=== PATIENT | female | born 1950 | race Caucasian/White ===

== ENCOUNTER → 2018-08-31 | Outpatient (CLI) | payer MEDICARE, OTHER ==
[~2018-08-31] MED LIST: AC325T PO; AMOX875T2 PO; BIOTIN PO; EST.625T; FISH1CAP15 PO; GLUC100016 PO; HYDR-508 PO; [UNRECOGNIZED DRUG - CODE] PO
== END ==
LOC: CARD 11:38
PROVIDERS: ATTEND Internal Medicine
DX: R00.2 Palpitations (principal)
CPT/HCPCS: 93005

== ENCOUNTER → 2018-11-18 | Outpatient (CLI) | payer MEDICARE, OTHER | LOC: CARD 10:03 | PROVIDERS: ATTEND Internal Medicine Interventional Cardiology | DX: I10 Essential (primary) hypertension (principal); I49.1 Atrial premature depolarization; I49.3 Ventricular premature depolarization; R00.0 Tachycardia, unspecified; I08.0 Rheumatic disorders of both mitral and aortic valves | CPT/HCPCS: 93306 ==

== ENCOUNTER 2020-01-06 19:00 | Emergency (ER) | payer MEDICARE, OTHER ==
[~2020-01-06] VITALS: Ht 167.7 cm; Wt 99.7 kg
--- NOTE | 2020-01-06 19:40 | ED Upper Extremity ---
General Chief Complaint: Trauma-Non Activation Stated Complaint: FELL/IN RIGHT WRIST Nursing Triage Note: fall Nursing Sepsis Screen: No Definite Risk Source: patient Exam Limitations: no limitations History of Present Illness Date Seen by Provider: Jan 06, 2020 Time Seen by Provider: 19:39 Initial Comments Fell just prior to arrival, right wrist pain. No other injury. Location Injury Occurred: pet store Onset: just prior to arrival Severity: moderate Pain/Injury Location: right wrist Method of Injury: fell Modifying Factors: Worse With Movement Allergies and Home Medications Allergies Coded Allergies: No Known Allergies (Verified Allergy, Unknown, 06/21/07) Home Medications Amoxicillin Trihydrate 875 Mg Tablet, 875 MG PO BID, (Reported) Fish Oil/Dha/Epa 1 Each Capsule, 1,200 MG PO DAILY, (Reported) Glucosamine Sulfate 2KCL 1,000 Mg Tablet, 1,000 MG PO DAILY, (Reported) Hydrocodone/Acetaminophen 1 Each Tablet, 1-2 EACH PO Q4H Prescribed by: JORGE NELSON on 05/24/15 1559 Hydrocodone/Acetaminophen 1 Each Tablet, 1 TAB PO Q4-6HR Prescribed by: THOMAS CARLOS on 01/06/20 2040 Multivit-Min/FA/Ca Carb/Vit K 1 Each Tablet, 1 EACH PO DAILY, (Reported) [Biotin] , 5,000 MCG PO DAILY, (Reported) Patient Home Medication List Home Medication List Reviewed: Yes Review of Systems Constitutional: see HPI EENTM: see HPI Respiratory: no symptoms reported Cardiovascular: no symptoms reported Genitourinary: no symptoms reported Musculoskeletal: see HPI Skin: no symptoms reported Psychiatric/Neurological: No Symptoms Reported Past Wbnvhdb-Rwiklj-Xbymqi Hx Patient Social History Alcohol Use: Denies Use Recreational Drug Use: No 2nd Hand Smoke Exposure: No Recent Foreign Travel: No Contact w/Someone Who Travel: No Recent Infectious Disease Expo: No Recent Hopitalizations: Yes Immunizations Up To Date Tetanus Booster (TDap): More than 5yrs Date of Influenza Vaccine: Aug 09, 2014 Seasonal Allergies Seasonal Allergies: No Past Medical History Surgeries: Yes (OVARY REMOVED,VEINS STRIPPED R LEG X2,) Hysterectomy, Tubal Ligation Respiratory: No Cardiac: Yes Chronic Edema/Swelling Neurological: No Reproductive Disorders: No Kidney Stones Gastrointestinal: No Musculoskeletal: No (BROKEN RIGHT ANKLE, TORN RIGHT MEDIAL MENISCUS) Arthritis Endocrine: No Cancer: No Psychosocial: No Integumentary: No Blood Disorders: No Family Medical History Alzheimer's disease 19 MOTHER Arthritis 19 FATHER 19 MOTHER Cardiovascular disease 19 FATHER Cataracts 19 MOTHER Hypertension 19 MOTHER Myocardial infarction 19 FATHER Thyroid disease 19 MOTHER No Family History of: AIDS Abdominal aortic aneurysm [place]'s disease Alcoholism Asthma Cancer of mouth Colon cancer Completed stroke Dementia Diabetes mellitus Kidney disease Parkinson's disease Prostate cancer Psychosocial problem Respiratory disorder Seizure disorder Severe allergy Tuberculosis Visual disorder Physical Exam Vital Signs Vital Signs - First Documented 01/06/20 19:14 Temp 36.8 Pulse 77 Resp 18 B/P (MAP) 165/93 (117) Capillary Refill : Less Than 3 Seconds Height, Weight, BMI Height: 5'6.00" Weight: 204lbs. oz. 92.736026ac; 35.00 BMI Method: General Appearance: WD/WN, no apparent distress HEENT: normal ENT inspection Respiratory: no respiratory distress, no accessory muscle use Shoulder: normal inspection, non-tender Elbow/Forearm: normal inspection, non-tender Wrist: Yes deformity, Yes ecchymosis, Yes limited ROM, Yes pain, Yes soft tissue tenderness, Yes swelling Hand: normal inspection, non-tender, Right Neurologic/Tendon: normal sensation, normal motor functions Neurologic/Psychiatric: alert, normal mood/affect, oriented x 3 Skin: normal color, warm/dry Normal sensation of the fingertips Progress/Results/Core Measures Results/Orders My Orders Orders - THOMAS CARLOS APRN Wrist, Right, 3 Views Or More (01/06/20 19:31) Rx-Hydrocodone/Apap 5-325 Mg (Rx-Vicodin (01/06/20 20:45) Vital Signs/I&O 01/06/20 19:14 Temp 36.8 Pulse 77 Resp 18 B/P (MAP) 165/93 (117) Blood Pressure Mean: 117 Diagnostic Imaging Diagonstic Imaging: Xray Plain Films/CT/US/NM/MRI: chest Comments NAME: CABRERA JEWELL REC#: [id number] PT STATUS: REG ER : 1950 PHYSICIAN: THOMAS CARLOS APRN ADMIT DATE: 01/06/20/ER Draft Date of Exam:01/06/20 WRIST, RIGHT, 3 VIEWS OR MORE INDICATION: Fall, wrist pain. COMPARISON: None available. TECHNIQUE: Three views of the right wrist were obtained. FINDINGS: There is an acute, mildly comminuted fracture of the distal radius which has intra-articular extension into the radiocarpal joint. There is mild articular surface incongruency of the distal radius due to posterior displacement of dorsal rim of the radius. However, there is no significant dorsal angulation of the radial articular surface at this time. Additionally, there is a fracture through the base of the ulnar styloid which is mildly displaced. Degenerative changes at the thumb base are present. IMPRESSION: 1. Acute comminuted fracture of the distal radius has intra-articular extension into the radiocarpal joint. 2. Associated ulnar styloid fracture. Dictated on workstation # [id number] Dict: 01/06/201958 Trans: 01/06/202001 PJE [id number] Interpreted by: SY BAKER MD Electronically signed by: Departure Communication (Admissions) She states that she follows with Dr. Montoya for all of her orthopedic needs. She was placed in a sugar tong style splint. Impression Primary Impression: Wrist fracture Qualified Codes: S62.101A - Fracture of unspecified carpal bone, right wrist, initial encounter for closed fracture Disposition: HOME, SELF-CARE Condition: Stable Departure-Patient Inst. Decision time for Depature: 20:39 Referrals: ANIYA BERRY DO (PCP/Family) Primary Care Physician Patient Instructions: Wrist Fracture (DC) Add. Discharge Instructions: 1. Leave the splint on at all times until you follow up with orthopedics 2. Call orthopedic surgeon of your choosing next week for recheck. Pain medication as directed in the meantime. All discharge instructions reviewed with patient and/or family. Voiced understanding. Scripts Hydrocodone/Acetaminophen (Latta 5-325 Tablet) 1 Each Tablet 1 TAB PO Q4-6HR for Pain MDD 10 TABS for 7 Days, #20 TAB Prov: THOMAS CARLOS APRN 01/06/20 THOMAS CARLOS APRN Jan 06, 2020 19:40
--- NOTE | 2020-01-06 20:02 | Diagnostic Imaging Report ---
INDICATION: Fall, wrist pain. COMPARISON: None available. TECHNIQUE: Three views of the right wrist were obtained. FINDINGS: There is an acute, mildly comminuted fracture of the distal radius which has intra-articular extension into the radiocarpal joint. There is mild articular surface incongruency of the distal radius due to posterior displacement of dorsal rim of the radius. However, there is no significant dorsal angulation of the radial articular surface at this time. Additionally, there is a fracture through the base of the ulnar styloid which is mildly displaced. Degenerative changes at the thumb base are present. IMPRESSION: 1. Acute comminuted fracture of the distal radius has intra-articular extension into the radiocarpal joint. 2. Associated ulnar styloid fracture. Dictated by: Dictated on workstation # [id number]
[2020-01-06] MEDS ORDERED: HYDR-4226 PO (20:40)
[2020-01-06] MEDS ORDERED: RX-HYDROCODONE/APAP 5/325 MG #4 TAB PK PO PRN (20:45)
[2020-01-06 21:15] VITALS: BP 165/93
== END 2020-01-06 21:15 | disposition home or self-care (01) ==
LOC: EDUNIT# 19:00 → ER 19:01
DX: S62.101A Fracture of unspecified carpal bone, right wrist, initial encounter for closed fracture (principal); Z82.49 Family history of ischemic heart disease and other diseases of the circulatory system; W19.XXXA Unspecified fall, initial encounter
CPT/HCPCS: 29105; 73110

== ENCOUNTER → 2021-04-10 | Outpatient (CLI) | payer MEDICARE, OTHER ==
[~2021-04-10] MED LIST changes: +HYDR-4226 PO
== END ==
LOC: CARD 14:00
PROVIDERS: ATTEND Internal Medicine Cardiovascular Disease
DX: I49.3 Ventricular premature depolarization (principal); I51.7 Cardiomegaly; I35.1 Nonrheumatic aortic (valve) insufficiency
CPT/HCPCS: 93306

== ENCOUNTER → 2021-04-16 | Outpatient (CLI) | payer MEDICARE, OTHER ==
[~2021-04-16] VITALS: Ht 170 cm; Wt 91.0 kg
[~2021-04-16] MED LIST changes: +CATHETER FLUSH 10 ML SYR IV PRN; +REGADENOSON 0.4 MG/5 ML SYR (LEXISCAN) IV ONE
--- NOTE | 2021-04-16 13:29 | STRESS TEST ---
DATE OF SERVICE: 04/16/2021 RESTING AND POST REGADENOSON TECHNETIUM-99M TETROFOSMIN SPECT CT IMAGING ORDERING PHYSICIAN: Dr. Acuña. PRIMARY PHYSICIAN: Dr. Schwarz. CLINICAL DIAGNOSIS: Premature ventricular contractions. Baseline images were carried out after injection of 10.31 mCi of technetium-99m Tetrofosmin. This was followed by 0.4 mg Regadenoson and 30.5 mCi of technetium-99m Tetrofosmin for stress imaging. The electrocardiogram showed sinus rhythm at baseline. There was nonspecific ST abnormality. The electrocardiogram did not change significantly with the Regadenoson infusion. The patient tolerated the procedure well. Review of images at rest and following stress does not indicate any distinct perfusion defects consistent with significant myocardial ischemia or infarction. Gated images show normal global left ventricular systolic function with normal regional wall motion. Left ventricular ejection fraction is calculated to be 64%. Left ventricular end diastolic volume is 74 mL. TID is absent (1.04). CONCLUSIONS: 1. No evidence of any significant myocardial ischemia or infarction. 2. Normal regional wall motion. 3. Normal global left ventricular systolic function with a calculated ejection fraction of 64%. Job ID: [id number] DocumentID: [id number] Dictated Date: 04/16/2021 13:21:27 [employer] Date: 04/16/2021 13:28:40 Dictated By: LOLIS ACUÑA MD, MA, FACP, FACC,
== END ==
LOC: CARD 08:30
PROVIDERS: ATTEND Internal Medicine Cardiovascular Disease
DX: I49.3 Ventricular premature depolarization (principal)
CPT/HCPCS: 78452; 93017; A9502

== ENCOUNTER 2021-07-15 10:07 | Emergency (ER) | payer MEDICARE, OTHER ==
[~2021-07-15] VITALS: Ht 167.7 cm; Wt 90.7 kg
[~2021-07-15 10:07] MED LIST changes: -CATHETER FLUSH 10 ML SYR IV PRN; -REGADENOSON 0.4 MG/5 ML SYR (LEXISCAN) IV ONE
--- NOTE | 2021-07-15 10:37 | ED Upper Extremity ---
General Chief Complaint: Trauma-Non Activation Stated Complaint: FALL - HEAD LAC - R ARM LAC / INJ Nursing Triage Note: PT AMB TO [facility] 6 WITH COMPLAINT OF FALL. STATES SHE TRIPPED WALKING INTO [employer] HITTING HEAD ON BRICK WALL AND LANDING ON RIGHT ARM. DENIES LOC. HAS ABRAISION TO RIGHT ELBOW AND RIGHT SCALP. UNKNOWN LAST TETANUS. Source: patient Exam Limitations: no limitations History of Present Illness Date Seen by Provider: Jul 15, 2021 Time Seen by Provider: 10:30 Initial Comments Patient is a 70-year-old female who presents to the emergency room with a chief complaint of right upper arm pain after tripping and falling this morning just prior to arrival. Patient states that she fell hitting her head on a brick wall and landed on her right upper arm. She did not have a loss of consciousness. Denies any visual complaints or nausea. Is not on blood thinners. Patient denies any pain in her neck back. Patient has a little right knee discomfort and states she has had right prior knee replacement. Has had previous broken right collarbone. All other review of systems reviewed and negative except as stated. Onset: just prior to arrival Pain/Injury Location: right arm Method of Injury: fell Modifying Factors: Improves With Immobilization; Worse With Movement Allergies and Home Medications Allergies Coded Allergies: NKANo Known Allergies (Verified Allergy, Unknown, 06/21/07) Patient Home Medication List Home Medication List Reviewed: Yes Amoxicillin Trihydrate (Amoxicillin) 875 Mg Tablet, 875 MG PO BID, (Reported) Entered as Reported by: MARNIE ANGELES on 05/22/15 1258 Fish Oil/Dha/Epa (Fish Oil 1,200 Mg Fish Oil) 1 Each Capsule, 1,200 MG PO DAILY, (Reported) Entered as Reported by: KATALINA MOHR on 05/17/15 1520 Glucosamine Sulfate 2KCL (Glucosamine) 1,000 Mg Tablet, 1,000 MG PO DAILY, (Reported) Entered as Reported by: KATALINA MOHR on 05/17/15 1520 Hydrocodone/Acetaminophen (Anna 7.5-325 Tablet) 1 Each Tablet, 1-2 EACH PO Q4H Prescribed by: JORGE NELSON on 05/24/15 1559 Hydrocodone/Acetaminophen (Hydrocodone/Acetaminophen 5 MG/325 MG TAB) 1 Each Tablet, 1 TAB PO Q4-6HR Prescribed by: THOMAS CARLOS on 01/06/202039 Hydrocodone/Acetaminophen (Hydrocodone-Acetamin 5-325 mg) 1 Each Tablet, 1 TAB PO Q4H PRN for PAIN-MODERATE (5-7) Prescribed by: KENNY LO on 07/15/21 1123 Multivit-Min/FA/Ca Carb/Vit K (Women's 50+ Daily Tablet) 1 Each Tablet, 1 EACH PO DAILY, (Reported) Entered as Reported by: KATALINA MOHR on 05/17/15 1520 [Biotin] , 5,000 MCG PO DAILY, (Reported) Entered as Reported by: KATALINA MOHR on 05/17/15 1520 Review of Systems Constitutional: see HPI Respiratory: no symptoms reported Cardiovascular: no symptoms reported Genitourinary: no symptoms reported Musculoskeletal: joint pain (right shoulder) Skin: other (scrape to right arm) Psychiatric/Neurological: Headache (mild) Past Yquqlub-Obycsy-Xuvdxi Hx Patient Social History Tobacco Use?: No Use of E-Cig and/or Vaping dev: No Substance use?: No Pt feels they are or have been: No Immunizations Up To Date Tetanus Booster (TDap): More than 5yrs First/Initial COVID19 Vaccinat: JANUARY 2021 Second COVID19 Vaccination Arnel: FEBRUARY 2021 COVID19 Vaccine Health Information Systems Technician: MARILEE Seasonal Allergies Seasonal Allergies: No Past Medical History Surgeries: Yes (OVARY REMOVED,VEINS STRIPPED R LEG X2,) Hysterectomy, Tubal Ligation Respiratory: No Cardiac: Yes Chronic Edema/Swelling Neurological: No Reproductive Disorders: No Kidney Stones Gastrointestinal: No Musculoskeletal: No (BROKEN RIGHT ANKLE, TORN RIGHT MEDIAL MENISCUS) Arthritis Endocrine: No Cancer: No Psychosocial: No Integumentary: No Blood Disorders: No Family Medical History Alzheimer's disease 19 MOTHER Arthritis 19 FATHER 19 MOTHER Cardiovascular disease 19 FATHER Cataracts 19 MOTHER Hypertension 19 MOTHER Myocardial infarction 19 FATHER Thyroid disease 19 MOTHER No Family History of: AIDS Abdominal aortic aneurysm [place]'s disease Alcoholism Asthma Cancer of mouth Colon cancer Completed stroke Dementia Diabetes mellitus Kidney disease Parkinson's disease Prostate cancer Psychosocial problem Respiratory disorder Seizure disorder Severe allergy Tuberculosis Visual disorder Physical Exam Vital Signs Vital Signs - First Documented Capillary Refill : Less Than 3 Seconds Height, Weight, BMI Height: 5'6.00" Weight: 204lbs. oz. 92.706069qg; 32.00 BMI Method: General Appearance: WD/WN, no apparent distress HEENT: PERRL/EOMI, TMs normal Neck: non-tender, full range of motion, supple Cardiovascular: regular rate, rhythm Respiratory: lungs clear, normal breath sounds, no respiratory distress, no accessory muscle use Gastrointestinal: soft Shoulder: bone tenderness (proximal shoulder), limited ROM, soft tissue tenderness, swelling Elbow/Forearm: normal inspection, abrasions Wrist: Yes normal inspection, Yes non-tender, Yes no evidence of injury, Yes normal ROM Hand: normal inspection, non-tender, no evidence of injury, normal ROM Neurologic/Tendon: normal sensation, normal motor functions, normal tendon functions Neurologic/Psychiatric: alert, normal mood/affect, oriented x 3 Skin: normal color, warm/dry, other (abrasion/contusion right confucianism, tender to touch) Progress/Results/Core Measures Results/Orders My Orders Orders - KENNY LO MD Humerus, Right, 2 Views (07/15/21 10:35) Vital Signs/I&O 07/15/21 07/15/21 07/15/21 10:15 10:15 11:38 Pulse 61 61 61 Resp 17 17 17 B/P (MAP) 139/93 (108) 139/93 (108) 139/93 Pulse Ox 94 94 94 O2 Delivery Room Air Room Air Room Air Blood Pressure Mean: 108 Diagnostic Imaging Diagonstic Imaging: Xray Comments [facility], [place] NAME: CABRERA JEWELL [facility] REC#: [id number] PT STATUS: REG ER : 1950 PHYSICIAN: KENNY LO MD ADMIT DATE: 07/15/21/ER Draft Date of Exam:07/15/21 HUMERUS, RIGHT, 2 VIEWS INDICATION: Tripped while walking. Fell, pain EXAMINATION: Right humerus from 07/15/2021 FINDINGS: 3 views of the humerus demonstrate a markedly comminuted fracture of the proximal humerus. There is no dislocation. The more distal visualized humerus appears intact. The glenohumeral joint space appears well aligned. IMPRESSION: 1. Comminuted proximal humerus fracture. Dictated on workstation # [id number] Dict: 07/15/21 1058 Trans: 07/15/21 1104 [facility] [id number] Interpreted by: CARLOS CHEN MD Electronically signed by: Departure Impression Primary Impression: Fracture, humerus closed Qualified Codes: S42.201A - Unspecified fracture of upper end of right humerus, initial encounter for closed fracture Disposition: HOME, SELF-CARE Condition: Stable Departure-Patient Inst. Decision time for Depature: 11:15 Referrals: ANIYA BERRY DO (PCP/Family) Primary Care Physician ASA CENTENO MD, MICHAEL P MD Patient Instructions: Shoulder Fracture Add. Discharge Instructions: Wear the sling at all times until you follow-up with orthopedics. Ice to your right shoulder for the next 24 to 48 hours. You can also put ice packs on your right knee. Pain medications, hydrocodone every 4-6 hours as needed for intense pain. Please take stool softeners while on hydrocodone. Return to the emergency room if you have any worsening pain especially with swelling, numbness and tingling to your hand or any other emergent concerning symptoms. I have provided references for orthopedic surgery here but you can also follow- up with your orthopedic group at [facility] in [place]. Scripts Hydrocodone/Acetaminophen (Hydrocodone-Acetamin 5-325 mg) 1 Each Tablet 1 TAB PO Q6H PRN for PAIN-MODERATE (5-7), #20 TAB Prov: KENNY LO MD 07/15/21 KENNY LO MD Jul 15, 2021 10:37
--- NOTE | 2021-07-15 11:04 | Diagnostic Imaging Report ---
INDICATION: Tripped while walking. Fell, pain EXAMINATION: Right humerus from 07/15/2021 FINDINGS: 3 views of the humerus demonstrate a markedly comminuted fracture of the proximal humerus. There is no dislocation. The more distal visualized humerus appears intact. The glenohumeral joint space appears well aligned. IMPRESSION: 1. Comminuted proximal humerus fracture. Dictated by: Dictated on workstation # [id number]
[2021-07-15] MEDS ORDERED: ACHD5005 PO ×2 (11:23→11:43)
[2021-07-15 11:38] VITALS: BP 139/93
== END 2021-07-15 11:38 | disposition home or self-care (01) ==
LOC: EDUNIT# 10:07 → ER 10:09
DX: S42.291A Other displaced fracture of upper end of right humerus, initial encounter for closed fracture (principal); W01.198A Fall on same level from slipping, tripping and stumbling with subsequent striking against other object, initial encounter
CPT/HCPCS: 73060

== ENCOUNTER 2021-10-25 11:22 | Outpatient (RCR) | payer MEDICARE, OTHER ==
[~2021-10-25 11:22] MED LIST changes: +ACHD5005 PO
== END 2021-10-25 12:20 | disposition home or self-care (01) ==
PROVIDERS: ATTEND Orthopaedic Surgery
DX: S42.201D Unspecified fracture of upper end of right humerus, subsequent encounter for fracture with routine healing (principal); W19.XXXD Unspecified fall, subsequent encounter